=== PATIENT | female | born 1995 | race Caucasian/White ===

== ENCOUNTER 2017-05-17 14:43 | Emergency (ER) | payer OTHER ==
[2017-05-17 15:02] VITALS: BP 146/78; PULSE 98; TEMP 98.3; BMI 38.4
--- NOTE | 2017-05-17 16:59 | PDOC ---
History of Present Illness - General Chief Complaint: Respiratory Stated Complaint: COUGHING Time Seen by Provider: 05/17/17 16:33 - History of Present Illness Initial Comments: 05/17/17 16:51 CHIEF COMPLAINT: cough HISTORY OF PRESENT ILLNESS: 22 yo F presents to [facility] with cough x "1 month." Patient states she "started with a cold or flu or something, but then the cough has lasted for over a month and is getting worse." She was seen by a doctor "recently" and has completed a course of prednisone and Z-pack and is still using albuterol inhaler. Patient denies any fever, chills, nausea, vomiting, or diarrhea. She states "I was told I should get an x-ray, so I went and got one at [facility], [place], but I called them and they keep saying they don't have my results." PAST MEDICAL HISTORY: Denies past medical history FAMILY HISTORY: Denies SOCIAL HISTORY: Denies tobacco, alcohol, illicit drug use. SURGICAL HISTORY: Denies ALLERGIES: apple, pollen, shrimp REVIEW OF SYSTEMS General/Constitutional: Denies fever or chills. Denies weakness. HEENT: Denies change in vision. Denies ear pain or discharge. Denies sore throat. Cardiovascular: Denies chest pain or shortness of breath. Respiratory: Worsening cough x 1 month. Gastrointestinal: Denies nausea, vomiting, diarrhea. Genitourinary: Denies dysuria, frequency, or change in urination. Musculoskeletal: Denies joint or muscle swelling or pain. Denies neck or back pain. Skin and breasts: Denies rash or easy bruising. PHYSICAL EXAM General Appearance: Well-appearing, appropriately dressed. No apparent distress. HEENT: EOMI, PERRLA, normal ENT inspection, normal voice, TMs normal, pharynx normal. No conjunctival pallor. No photophobia, scleral icterus. Neck: Supple. Trachea midline. No tenderness, rigidity, carotid bruit, stridor , lymphadenopathy, or thyromegaly. Respiratory/Chest: B/l expiratory wheezing. No shortness of breath, chest tenderness, respiratory distress, accessory muscle use. No crackles, rales, rhonchi, stridor, wheezing, dullness Cardiovascular: RRR. S1, S2. Gastrointestinal/Abdominal: Normal bowel sounds. Abdomen soft, non-distended. No tenderness or rebound tenderness. No organomegaly, pulsatile mass, guarding , hernia, hepatomegaly, splenomegaly. Musculoskeletal/Extremities: Normal inspection. FROM of all extremities, normal capillary refill. Pelvis Stable. No CVA tenderness. No tenderness to extremities, pedal edema, swelling, erythema or deformity. Integumentary: Appropriate color, dry, warm. 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 Fully oriented, alert. Appropriate mood/affect. Motor strength 5/5. No appreciable EOM palsy, facial droop or sensory deficit. 05/17/17 16:56 Past History - Past Medical History Allergies/Adverse Reactions: Allergies Allergy/AdvReac Type Severity Reaction Status Date / Time apple Allergy Verified 05/17/17 14:59 No Known Drug Allergies Allergy Verified 05/17/17 14:59 pollen extracts Allergy Verified 05/17/17 14:59 shrimp Allergy Verified 05/17/17 14:59 Home Medications: Ambulatory Orders Benzonatate [Tessalon Pearls -] 100 mg PO TID PRN #21 capsule 05/17/17 Clarithromycin 500 mg PO BID #20 tablet 05/17/17 COPD: No GI Disorders: Yes (GASTRITIS) - Suicide/Smoking/Psychosocial Hx Smoking History: Never smoked Number of Cigarettes Smoked Daily: 0 Hx Alcohol Use: No Drug/Substance Use Hx: No Substance Use Type: None *Physical Exam - Vital Signs Last Vital Signs Temp Pulse Resp BP Pulse Ox 98.3 F 98 H 19 146/78 96 05/17/17 14:59 05/17/17 14:59 05/17/17 14:59 05/17/17 14:59 05/17/17 14:59 Medical Decision Making - Medical Decision Making 05/17/17 16:59 22 yo F presents to [facility] with cough x "1 month." Patient states she "started with a cold or flu or something, but then the cough has lasted for over a month and is getting worse." Patient with b/l inspiratory wheezing, will order chest x-ray r/o acute pathology. Chest x-ray suggestive of bronchitis. Will rx clarithromycin and tessalon perles. Advised patient to take medicaitons as prescribed, f/u with PMD next week. *DC/Admit/Observation/Transfer Diagnosis at time of Disposition: Bronchitis - Discharge Dispostion Disposition: HOME Condition at time of disposition: Stable Admit: No - Prescriptions Prescriptions: Benzonatate [Tessalon Pearls -] 100 mg PO TID PRN #21 capsule PRN Reason: Cough Clarithromycin 500 mg PO BID #20 tablet - Referrals Referrals: Ivelisse Griffin [Primary Care Provider] - - Patient Instructions Printed Discharge Instructions: DI for Acute Bronchitis Additional Instructions: Please take medications as prescribed. Continue using your inhaler as needed. Follow up with your primary care doctor next week if symptoms persist. If you develop any fever, chills, vomiting, diarrhea, or any new or worsening symptoms , please return to the ER. - Post Discharge Activity
[2017-05-17] MEDS ORDERED: ALBUTEROL SO4 2.5/IPRATROPIUM 0.5 INH SOL 3 ML VIAL.NEB. NEB ONE ×2 (17:41→17:54)
== END 2017-05-17 18:04 | disposition home or self-care (01) ==
LOC: JERFT 14:43
PROC: 3E0F7GC Introduction of Other Therapeutic Substance into Respiratory Tract, Via Natural or Artificial Opening (ICD-10-PCS; principal; 2017-05-17)
DX: J40 Bronchitis, not specified as acute or chronic (principal)
CPT/HCPCS: 71046-TC; 94640; 99281-25

== ENCOUNTER 2018-03-03 18:53 | Emergency (ER) | payer OTHER ==
[2018-03-03 19:15] VITALS: BP 133/73; PULSE 78; TEMP 98.6; BMI 35.6
--- NOTE | 2018-03-03 19:46 | PDOC ---
History of Present Illness - General Chief Complaint: Rash Stated Complaint: RASH Time Seen by Provider: 03/03/18 19:00 History Source: Patient Exam Limitations: No Limitations - History of Present Illness Initial Comments: 03/03/18 19:47 Pt is a 22 y/o F who presents to the ED For rash to her abdomen for two weeks. Pt states the rash started with one patch near her belly button. Over the past two weeks the rash has spread to her abdomen, chest, breasts and trunk. Was seen at an urgent care for her rash and given an antifungal cream. She has been using the cream with little relief of her symptoms. Denies fevers, chills, n/v/ d. Past History - Travel Traveled outside of the country in the last 30 days: No Close contact w/someone who was outside of country & ill: No - Past Medical History Allergies/Adverse Reactions: Allergies Allergy/AdvReac Type Severity Reaction Status Date / Time apple Allergy Verified 03/03/18 19:11 pollen extracts Allergy Verified 03/03/18 19:11 shrimp Allergy Verified 03/03/18 19:11 Home Medications: Ambulatory Orders Hydrocortisone 2.5% Lotion [Hytone 2.5% Lotion -] 1 applic TP BID #1 bottle COPD: No GI Disorders: Yes (GASTRITIS) - Suicide/Smoking/Psychosocial Hx Smoking History: Never smoked Number of Cigarettes Smoked Daily: 0 Hx Alcohol Use: No Drug/Substance Use Hx: No Substance Use Type: None Review of Systems - Review of Systems Able to Perform ROS?: Yes Comments:: 03/03/18 19:40 CONSTITUTIONAL: Absent: fever, chills, diaphoresis, generalized weakness, malaise, loss of appetite HEENT: Absent: rhinorrhea, nasal congestion, throat pain, throat swelling, difficulty swallowing, mouth swelling, ear pain, eye pain, visual Changes CARDIOVASCULAR: Absent: chest pain, loss of consciousness, palpitations, irregular heart rate, peripheral edema RESPIRATORY: Absent: cough, shortness of breath, dyspnea with exertion, orthopnea, wheezing, stridor, hemoptysis GASTROINTESTINAL: Absent: abdominal pain, abdominal distension, nausea, vomiting, diarrhea, constipation, melena, hematochezia GENITOURINARY: Absent: dysuria, frequency, urgency, hesitancy, hematuria, flank pain, genital pain MUSCULOSKELETAL: Absent: myalgia, arthralgia, joint swelling SKIN: Present: rash Absent: itching, pallor HEMATOLOGIC/IMMUNOLOGIC: Absent: easy bleeding, easy bruising, lymphadenopathy, frequent infections ENDOCRINE: Absent: unexplained weight gain, unexplained weight loss, heat intolerance, cold intolerance NEUROLOGIC: Absent: headache, focal weakness or paresthesias, dizziness, unsteady gait, seizure, mental status changes, bladder or bowel incontinence PSYCHIATRIC: Absent: anxiety, depression, suicidal or homicidal ideation, hallucinations. Is the patient limited Serbian proficient: No *Physical Exam - Vital Signs Last Vital Signs Temp Pulse Resp BP Pulse Ox 98.6 F 78 20 133/73 99 03/03/18 19:12 03/03/18 19:12 03/03/18 19:12 03/03/18 19:12 03/03/18 19:12 - Physical Exam Comments: 03/03/18 19:40 GENERAL: Well developed, well nourished. Awake and alert. No acute distress. HEENT: Normocephalic, atraumatic. PERRLA, EOMI. No conjunctival pallor. Sclera are non- icteric. Moist mucous membranes. Oropharynx is clear. NECK: Supple. Full ROM. No JVD. Carotid pulses 2+ and symmetric, without bruits. No thyromegaly. No lymphadenopathy. SKIN: Pt with excoriated herald patch about 1cm or 1cm to lower abdomen by R belly button. Pt with macules to abdomen, chest and back. Warm and dry. Normal capillary refill. No jaundice. NEUROLOGICAL: Alert, awake, appropriate. Cranial nerves 2-12 intact. No deficits to light touch and temperature in face, upper extremities and lower extremities. No motor deficits in the in face, upper extremities and lower extremities. Normoreflexic in the upper and lower extremities. Normal speech. Toes are down- going bilaterally. Gait is normal without ataxia. PSYCHIATRIC: Cooperative. Good eye contact. Appropriate mood and affect. Medical Decision Making - Medical Decision Making 03/03/18 19:48 Pt is a 22 y/o F who presents to the ED for a rash x2 weeks. -Rash appears to have a classic pityriasis rosea appearance. [place] patch is near the belly button -Told pt to hold the antifungal cream -Prescribed hydrocortisone -Given Derm follow up -Pt has vacation to [place] planned. Advised to wear copious amounts of sunscreen and to cover skin as much as possible to prevent scarring -DC home -Pt understands all dc instructions and all questions were answered. 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 This is a viral rash. The rash will take proximally 6-8 weeks to fully disappear. You may use the hydrocortisone cream twice a day to help with the itch. Wear liberal amounts of sunscreen while on vacation to help prevent worsening of rash and/or potential scarring. Follow-up with dermatology if her symptoms are not getting better in the designated timeframe. Return to the emergency department for any new or worsening symptoms. - Post Discharge Activity Forms/Work/School Notes: Back to Work
== END 2018-03-03 19:49 | disposition home or self-care (01) ==
LOC: JERFT 18:53
DX: L42 Pityriasis rosea (principal)
CPT/HCPCS: 99281-25

== ENCOUNTER 2019-01-19 21:17 | Emergency (ER) | payer OTHER | END 2019-01-19 22:34 | disposition home or self-care (01) | LOC: FER 21:17 ==